=== PATIENT | female | born 1995 | race Caucasian/White ===

== ENCOUNTER 2019-06-12 12:54 | Emergency (ER) | payer OTHER ==
[2019-06-12] MEDS ORDERED: ONDANSETRON 4 MG TAB.RAPDIS PO ONE (13:22)
--- NOTE | 2019-06-12 13:24 | ER Document Report ---
ED Medical Screen (RME) - General Chief Complaint: Nausea/Vomiting Stated Complaint: INGESTED WASTE WATER Time Seen by Provider: 06/12/19 13:20 Mode of Arrival: Ambulatory Information source: Patient Notes: 23-year-old female presents emergency department after she was changing out her waist water valve in her camper and it splashed in her face and she drank approximately 1 cup wastewater at approximately 10:00 this morning.. She complains of abdominal pain now with vomiting. I have greeted and performed a rapid initial assessment of this patient. A comprehensive ED assessment and evaluation of the patient, analysis of test results and completion of the medical decision making process will be conducted by additional ED providers. Dictation of this chart was performed using voice recognition software; therefore, there may be some unintended grammatical errors. TRAVEL OUTSIDE OF THE [place] IN LAST 30 DAYS: No - Related Data Allergies/Adverse Reactions: No Known Allergies Allergy (Verified 06/12/19 13:18) Past Medical History - Social History Chew tobacco use (# tins/day): No Frequency of alcohol use: None Drug Abuse: None Physical Exam - Vital signs Vitals: Temp Pulse Resp BP Pulse Ox 97.6 F 99 16 127/83 H 96 06/12/19 13:06 06/12/19 13:06 06/12/19 13:06 06/12/19 13:06 06/12/19 13:06 Course - Vital Signs Vital signs: Temp Pulse Resp BP Pulse Ox 97.6 F 99 16 127/83 H 96 06/12/19 13:06 06/12/19 13:06 06/12/19 13:06 06/12/19 13:06 06/12/19 13:06
[2019-06-12 13:56] LABS: ABSOLUTE BASOPHILS # (AUTO) 0.1 10^3/uL (0.0-0.2); ABSOLUTE EOSINOPHILS # (AUTO) 0.2 10^3/uL (0.0-0.6); ABSOLUTE LYMPHOCYTES (AUTO) 2.4 10^3/uL (0.5-4.7); ABSOLUTE MONOCYTES (AUTO) 0.8 10^3/uL (0.1-1.4); ABSOLUTE NEUT (AUTO) 5.7 10^3/uL (1.7-8.2); BASOPHILS % (AUTO) 0.7 % (0-2); EOSINOPHILS % (AUTO) 2.3 % (0-6); HEMOGLOBIN 13.6 g/dL (12.0-15.5); LYMPHOCYTES % (AUTO) 26.3 % (13-45); MEAN CORPUSCULAR HEMOGLOBIN 29.8 pg (27.0-33.4); MEAN CORPUSCULAR VOLUME 88 fl (80-97); MONOCYTES % (AUTO) 8.8 % (3-13); PLATELET COUNT 409 10^3/uL (150-450); RED BLOOD COUNT 4.56 10^6/uL (3.72-5.28); RED CELL DISTRIBUTION WIDTH 12.6 % (11.5-14.0); SEGMENTED NEUTROPHILS % (AUTO) 61.9 % (42-78); TOTAL CELLS COUNTED % (AUTO) 100 %; WHITE BLOOD COUNT 9.2 10^3/uL (4.0-10.5)
[2019-06-12 14:05] LABS: APPEARANCE,URINE CLOUDY; BILIRUBIN,URINE NEGATIVE (NEGATIVE); COLOR,URINE AMBER; GLUCOSE, URINE NEGATIVE (NEGATIVE); KETONES,URINE TRACE mg/dL (NEGATIVE); LEUKOCYTE ESTERASE,URINE MODERATE (NEGATIVE); NITRITE,URINE NEGATIVE (NEGATIVE); PROTEIN,URINE 30 mg/dL (NEGATIVE); URINE SPECIFIC GRAVITY 1.033
[2019-06-12 14:20] LABS: ALBUMIN 4.6 g/dL (3.5-5.0); ALKALINE PHOSPHATASE 47 U/L (38-126); ANION GAP 10 (5-19); ASPARTATE AMINO TRANSFERASE 34 U/L (14-36); BILIRUBIN,DIRECT 0.2 mg/dL (0.0-0.4); BILIRUBIN,TOTAL 0.5 mg/dL (0.2-1.3); BLOOD UREA NITROGEN 11 mg/dL (7-20); CALCIUM 9.4 mg/dL (8.4-10.2); CARBON DIOXIDE 26 mmol/L (22-30); CHLORIDE 104 mmol/L (98-107); GLUCOSE 104 mg/dL (75-110); POTASSIUM 4.2 mmol/L (3.6-5.0); TOTAL PROTEIN 7.3 g/dL (6.3-8.2)
--- NOTE | 2019-06-12 15:38 | ER Document Report ---
HPI - HPI Patient complains to provider of: consumed waste water Time Seen by Provider: 06/12/19 13:20 Pain Level: 3 Context: Healthy 23-year-old female presents the emergency department after consuming waste water after attempting to drain her camper today at 10 AM. Patient states that she probably consumed about a cup's worth of waist from the black water tank. Patient complains of nausea and vomited several times earlier but has not vomited since being in the emergency department. Patient does complain of nausea still. Patient had one episode of diarrhea here in the emergency department. Patient denies any fevers or chills, denies any acute shortness of breath or chest pain. - CONSTITUTIONAL Constitutional: DENIES: Fever, Chills - REPRODUCTIVE Reproductive: DENIES: : Past Medical History - General Information source: Patient - Social History Smoking Status: Unknown if Ever Smoked Chew tobacco use (# tins/day): No Frequency of alcohol use: None Drug Abuse: None Family History: None Patient has suicidal ideation: No Patient has homicidal ideation: No Renal/ Medical History: Denies: Hx Peritoneal Dialysis Vertical Provider Document - CONSTITUTIONAL Notes: PHYSICAL EXAMINATION: Reviewed vital signs and charting by RN GENERAL: Alert, interacts well. No acute distress. HEAD: Normocephalic, atraumatic. EYES: Pupils equal and round. Extraocular movements intact. ENT: Oral mucosa moist, tongue midline. NECK: Full range of motion. Trachea midline. EXTREMITIES: Moves all 4 extremities spontaneously. No edema, No cyanosis. PSYCH: Normal affect, normal mood. SKIN: Warm, dry, normal turgor. No rashes or lesions noted. - INFECTION CONTROL TRAVEL OUTSIDE OF THE [place] IN LAST 30 DAYS: No Course - Re-evaluation Re-evalutation: 06/12/19 15:34 Overall well-appearing, basic labs were ordered in triage and there were no abnormalities seen. Patient did not receive Zofran until I saw her in the room since she was still complaining of nausea. Patient drank an entire bottle of g alejandro patricia while waiting and is tolerating p.o. fluids. I explained to patient that she most likely may suffer from a viral gastroenteritis and gave her warning signs and return precautions. Patient states that she does feel well enough to leave and I will send her home with some Zofran. - Vital Signs Vital signs: Temp Pulse Resp BP Pulse Ox 97.6 F 99 16 127/83 H 96 06/12/19 13:06 06/12/19 13:06 06/12/19 13:06 06/12/19 13:06 06/12/19 13:06 - Laboratory Result Diagrams: 06/12/19 13:34 06/12/19 13:34 Laboratory results interpreted by me: 06/12/19 13:34 Urine Protein 30 H Urine Ketones TRACE H Urine Urobilinogen 2.0 H Ur Leukocyte Esterase MODERATE H Discharge - Discharge Clinical Impression: Ingestion of toxic substance Condition: Good Disposition: HOME, SELF-CARE Additional Instructions: You were seen in the emergency department for a toxic ingestion. Your lab work was all within normal limits. You received a dose of Zofran here in the emergency department and you are able to tolerate p.o. fluids which is very reassuring to us. I am sending you home with some Zofran and you can take that as it every 4 hours for nausea. You may potentially suffer from a viral gastroenteritis diarrhea and/or vomiting for the next couple of days. Please return to the emergency department if you are unable to tolerate any oral intake even taking the antinausea medication, you have rosita blood in your stool, you have gross blood in your vomit, he develop severe shortness of breath, or you have any other concerning symptoms.
[2019-06-12] MEDS ORDERED: ONDANSETRON ODT 4 MG TAB (6 TAB/ER DISP) PO PRN (15:40)
[2019-06-12 15:49] VITALS: BP 124/80
== END 2019-06-12 15:49 | disposition home or self-care (01) ==
LOC: ER 12:54
DX: Z77.111 Contact with and (suspected) exposure to water pollution (principal); R11.2 Nausea with vomiting, unspecified; R19.7 Diarrhea, unspecified
CPT/HCPCS: 99283; 36415; 87086; 85025; 81025; 80053; 81001; S0119

== ENCOUNTER 2019-12-09 21:31 | Emergency (ER) | payer OTHER ==
--- NOTE | 2019-12-09 22:48 | RADIOLOGY REPORT (SQ) ---
EXAM DESCRIPTION: XR CHEST 1 VIEW COMPLETED DATE/TME: 12/09/2019 00:00 CLINICAL HISTORY: 23 years, Female, SOB COMPARISON: None. NUMBER OF VIEWS: One TECHNIQUE: Single frontal view of the chest was obtained portably LIMITATIONS: None. FINDINGS: Cardiac and mediastinal contours are normal in appearance. Lungs are clear. No pleural effusion or pneumothorax. IMPRESSION: No acute disease. copyright 2010 [employer]- All Rights Reserved
--- NOTE | 2019-12-09 23:39 | ER Document Report ---
ED General - General Chief Complaint: Cough Stated Complaint: RESPIRATORY Time Seen by Provider: 12/09/19 23:20 Primary Care Provider: KAMRAN HUSSEIN FNP [Primary Care Provider] - Follow up as needed Mode of Arrival: Ambulatory Information source: Patient TRAVEL OUTSIDE OF THE [place] IN LAST 30 DAYS: No - HPI Onset: Last week Onset/Duration: Gradual Quality of pain: Achy Severity: Mild Pain Level: 1 Associated symptoms: Nonproductive cough, Fever, Vomiting, Other - body aches Exacerbated by: Denies Relieved by: Denies Similar symptoms previously: No Recently seen / treated by doctor: No Notes: 23 year old female with no significant PMH here for 1 week of a dry cough, fe vers, sore throat, body aches. The patient says she started feeling bad about a week ago. She noticed fevers to 101F on Tuesday and of last week but the fevers have since passed. The patient - Related Data Allergies/Adverse Reactions: No Known Allergies Allergy (Verified 06/12/19 13:18) Past Medical History - General Information source: Patient - Social History Smoking Status: Never Smoker Frequency of alcohol use: None Drug Abuse: None Lives with: Alone Family History: Reviewed & Not Pertinent Patient has suicidal ideation: No Patient has homicidal ideation: No Renal/ Medical History: Denies: Hx Peritoneal Dialysis Review of Systems - Review of Systems Constitutional: Fever, Malaise EENT: Throat pain Cardiovascular: Other - mild left sided (mostly posterior) chest pain Respiratory: Cough Gastrointestinal: Vomiting Genitourinary: No symptoms reported Female Genitourinary: No symptoms reported Musculoskeletal: Other - body aches Skin: No symptoms reported Hematologic/Lymphatic: No symptoms reported Neurological/Psychological: No symptoms reported -: Yes All other systems reviewed and negative Physical Exam - Vital signs Vitals: Temp Pulse Resp BP 98.6 F 82 16 140/81 H 12/09/19 22:13 12/09/19 22:13 12/09/19 22:13 12/09/19 22:13 - Notes Notes: GENERAL: Well-appearing, well-nourished and in no acute distress. HEAD: Atraumatic, normocephalic. EYES: Pupils equal round and reactive to light, extraocular movements intact, sclera anicteric, conjunctiva are normal. ENT: Nares patent, oropharynx clear without exudates. Moist mucous membranes. NECK: Normal range of motion, supple without lymphadenopathy or JVD. LUNGS: Breath sounds clear to auscultation bilaterally and equal. No wheezes rales or rhonchi. HEART: Regular rate and rhythm without murmurs, rubs or gallops. ABDOMEN: Soft, nontender, normoactive bowel sounds. No guarding, no rebound. No masses appreciated. EXTREMITIES: Normal range of motion, no pitting or edema. No clubbing or cyanosis. NEUROLOGICAL: Cranial nerves II through XII grossly intact. Normal speech, normal gait. PSYCH: Normal mood, normal affect. SKIN: Warm, Dry, normal turgor, no rashes or lesions noted. Course - Re-evaluation Re-evalutation: 12/10/19 00:45 The patient has had about a week of Flu like symptoms. Patient tested positive for Influenza B here in the ER. Patient told her symptoms are consistent with Influenza so no COVID19 testing performed today. Patient says she has not had fevers for 2 days now. Patient not a Tamiflu candidate since she has had a week of symptoms overall. Patient told to follow up with her PCP if she does not have a full recovery in a couple days. - Vital Signs Vital signs: Temp Pulse Resp BP Pulse Ox 97.7 F 77 16 146/89 H 12/10/19 00:40 12/10/19 00:40 12/10/19 00:40 12/10/19 00:40 - Diagnostic Test Radiology reviewed: Image reviewed, Reports reviewed Discharge - Discharge Clinical Impression: Influenza B Condition: Stable Disposition: HOME, SELF-CARE Instructions: Influenza ([facility]) Additional Instructions: Drink plenty of fluids in the days to come. Use Tylenol and Motrin for body aches and fevers. Tell anyone you have been in contact with who has similar symptoms that you tested positive for Influenza B in the ER today. Forms: Return to Work Referrals: KAMRAN HUSSEIN FNP [Primary Care Provider] - Follow up as needed
[2019-12-10 00:03] LABS: A TYPE INFLUENZA AG NEGATIVE (NEGATIVE)
[2019-12-10 00:04] LABS: B INFLUENZA AG POSITIVE (NEGATIVE)
[2019-12-10 00:40] VITALS: BP 146/89
== END 2019-12-10 00:49 | disposition home or self-care (01) ==
LOC: ER 21:31
DX: J10.1 Influenza due to other identified influenza virus with other respiratory manifestations (principal); R05 Cough; R11.10 Vomiting, unspecified; R07.9 Chest pain, unspecified; R53.81 Other malaise
CPT/HCPCS: 71045; 87070; 87804; 87880; 99283